=== PATIENT | female | born 1985 | race Caucasian/White ===

== ENCOUNTER 2016-11-09 10:01 | Day surgery (SDC) | payer BC ==
[~2016-11-09 10:01] MED LIST: Lactated Ringers 1,000 ML IV SCH; Lidocaine 1%/Sod Bicarbonate in NS 8.4% 1 ML Syringe PRN; Sodium Chloride 0.9% 10 ML Syringe FLUSH PRN; cefOXitin 2 GM in Premix Bag 1 BAG IV ONE
--- NOTE | 2016-11-09 10:42 | PCM.PREANE ---
Preanesthetic Assessment - Anesthesia/Transfusion/Family Hx Anesthesia History: Prior Anesthesia Without Reaction Type of Anesthesia Reaction: Excessive Nausea/Vomiting Family History of Anesthesia Reaction: No Transfusion History: No Prior Transfusion(s) Intubation History: Unknown - Review of Systems General: No Symptoms Pulmonary: No Symptoms Cardiovascular: No Symptoms Gastrointestinal: No Symptoms (occasionally GERD) Neurological: No Symptoms (history of motion sickness, and vertigo), Headache Other: Reports: Liver Problems (prior history of elevated liver enzymes), Anxiety - Physical Assessment NPO Status Date: 11/08/16 NPO Status Time: 20:30 Pulse: 76 O2 Sat by Pulse Oximetry: 96 Respiratory Rate: 17 Blood Pressure: 119/78 Temperature: 36.9 C Height: 1.55 m Weight: 61.961 kg ASA Class: 2 Mental Status: Alert & Oriented x3 Airway Class: Mallampati = 2 Dentition: Reports: Normal Dentition, Caries Thyro-Mental Finger Breadths: 3 Mouth Opening Finger Breadths: 3 ROM/Head Extension: Full Lungs: Clear to Auscultation, Normal Respiratory Effort Cardiovascular: Regular Rate, Regular Rhythm, No Murmurs - Lab Values: Laboratory Last Values Urine HCG, Qual Negative (NEGATIVE) 11/09/16 10:10 - Allergies Allergies/Adverse Reactions: Allergies Allergy/AdvReac Type Severity Reaction Status Date / Time No Known Allergies Allergy Verified 11/09/16 10:46 - Anesthesia Plan Pre-Op Medication Ordered: None - Acknowledgements Anesthesia Type Planned: MAC Pt an Appropriate Candidate for the Planned Anesthesia: Yes Alternatives and Risks of Anesthesia Discussed w Pt/Guardian: Yes Pt/Guardian Understands and Agrees with Anesthesia Plan: Yes PreAnesthesia Questionnaire Cardiovascular History: Reports: None Respiratory History: Reports: None Gastrointestinal History: Reports: Hemorrhoids, Other (See Below) Other Gastrointestinal History: nausea, vomiting Genitourinary History: Reports: None 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 OB/BYN History: infertility, irregular menses Musculoskeletal History: Reports: None Neurological History: Reports: Migraines Psychiatric History: Reports: Anxiety Endocrine/Metabolic History: Reports: None Hematologic History: Reports: None Immunologic History: Reports: None Oncologic (Cancer) History: Reports: None Dermatologic History: Reports: None - Past Surgical History Head Surgeries/Procedures: Reports: None HEENT Surgical History: Reports: Oral Surgery, Tonsillectomy GI Surgical History: Reports: None Female Surgical History: Reports: None Male Surgical History: Reports: None Endocrine Surgical History: Reports: None Neurological Surgical History: Reports: None Musculoskeletal Surgical History: Reports: None Dermatological Surgical History: Reports: None - History Comment History Comment: vitamins every day - SUBSTANCE USE Smoking Status *Q: Never Smoker Tobacco Use Within Last Twelve Months: No Second Hand Smoke Exposure: No Days Per Week of Alcohol Use: 0 Recreational Drug Use History: No - HOME MEDS Home Medications: Home Meds Vits #93/Iron Fum/FA [ Formula Tablet] 1 tab PO DAILY 11/08/16 [History] - CURRENT (IN HOUSE) MEDS Current Meds: Current Medications Lactated Ringer's (Ringers, Lactated) 1,000 mls @ 125 mls/hr IV ASDIRECTED SHANTEL Stop: 11/09/16 23:00 Last Admin: 11/09/16 10:28 Dose: 125 mls/hr Lidocaine/Sodium Bicarbonate (Buffered Lidocaine 1% In Ns 8.4%) 0.25 ml .XX ONETIME PRN PRN Reason: Prior to IV Start Stop: 11/09/16 18:00 Last Admin: 11/09/16 10:28 Dose: 0.25 ml Sodium Chloride (Saline Flush) 10 ml FLUSH ASDIRECTED PRN PRN Reason: Keep Vein Open Stop: 11/09/16 18:00 Discontinued Medications Bupivacaine HCl/Epinephrine Bitart (Marcaine 0.5%/Epinephrine 1:200,000) Confirm Administered Dose 50 ml .ROUTE .STK-MED ONE Stop: 11/09/16 10:18 Dibucaine (Nupercainal 1% Oint) Confirm Administered Dose 28.35 gm .ROUTE .STK- MED ONE Stop: 11/09/16 10:18 Cefoxitin Sodium 2 gm/ Premix 50 mls @ 100 mls/hr IV ONETIME ONE Stop: 11/09/16 10:00 Last Admin: 11/09/16 10:33 Dose: 100 mls/hr Lidocaine/Epinephrine (Xylocaine 1% With Epinephrine 1:100,000) Confirm Administered Dose 20 ml .ROUTE .STK-MED ONE Stop: 11/09/16 10:18
[2016-11-09] MEDS ORDERED: Scopolamine 1.5 MG Transdermal Patch TRDERM ONE (10:47)
[2016-11-09] MEDS ORDERED: fentaNYL 100 MCG/2 ML SDV ONE (10:54)
[2016-11-09] MEDS ORDERED: Midazolam 1 MG/ML 2 ML SDV ONE (10:54)
[2016-11-09] MEDS ORDERED: Propofol 200 MG/20 ML SDV ONE (10:54)
[2016-11-09] MEDS ORDERED: Lidocaine 1% 4 ML ONE (10:54)
[2016-11-09] MEDS ORDERED: Dexamethasone 4 MG/ML SDV ONE (11:05)
[2016-11-09] MEDS ORDERED: Ondansetron 4 MG/2 ML SDV ONE (11:05)
[2016-11-09] MEDS ORDERED: Lidocaine 1% with EPINEPHrine 1:100,000 20 ML MDV ONE (11:40)
[2016-11-09] MEDS: Lidocaine 1% with EPINEPHrine 1:100,000 20 ML MDV ONE ×2 (11:44→11:49)
[2016-11-09] MEDS: Bupivacaine 0.5%/EPINEPHrine 1:200,000 50 ML MDV ONE ×2 (11:44→11:54)
[2016-11-09] MEDS ORDERED: Metoclopramide 10 MG/2 ML SDV IV PRN (11:50)
[2016-11-09] MEDS ORDERED: fentaNYL 100 MCG/2 ML SDV IVPUSH PRN (11:50)
[2016-11-09] MEDS ORDERED: Ondansetron 4 MG/2 ML SDV IVPUSH PRN (11:50)
--- NOTE | 2016-11-09 12:18 | PCM.OPNOTE ---
- General Post-Op/Procedure Note Date of Surgery/Procedure: 11/09/16 Operative Procedure(s): Diagnostic anoscopy. PPH procedure Findings: Grade 3 prolapsing internal hemorrhoids with 2 anal tags Pre Op Diagnosis: Grade 3 bleeding internal hemorrhoids with 2 anal tags Post-Op Diagnosis: Same Anesthesia Technique: Local, MAC, Moderate Sedation Primary Surgeon: Jay Chavarria Pathology: Rectal strip EBL in mLs: 1 Complications: None Condition: Good Free Text/Narrative:: After adequate IV sedation and analgesia was obtained with monitoring the patient was placed in the prone jackknife position with her buttocks taped. Perianal inspection revealed the hemorrhoids. Anoscopy also confirmed the presence of 3 column internal prolapsed hemorrhoids. A perianal block was performed next. A 2-0 Prolene suture line was placed about 4 cm above the dentate line. The circular stapler was inserted and fired. Once the stapler was removed I inspected the staple line which was hemostatic. Lidocaine ointment and Surgicel were placed in the area.
--- NOTE | 2016-11-09 12:25 | PCM48HPAN ---
Post Anesthesia Note - EVALUATION WITHIN 48HRS OF ANESTHETIC Vital Signs in Normal Range: Yes Patient Participated in Evaluation: Yes Respiratory Function Stable: Yes Airway Patent: Yes Cardiovascular Function Stable: Yes Hydration Status Stable: Yes Pain Control Satisfactory: Yes Nausea and Vomiting Control Satisfactory: Yes Mental Status Recovered: Yes
[2016-11-09 12:28] VITALS: BP 94/63
[2016-11-09] MEDS ORDERED: Acetaminophen/Codeine 300-30 MG Tab PO SCH (12:50)
== END 2016-11-09 13:25 | disposition home or self-care (01) ==
LOC: JD.SDS 10:01
PROVIDERS: ATTEND Surgery
DX: K62.89 Other specified diseases of anus and rectum (principal); K64.8 Other hemorrhoids
CPT/HCPCS: 46947; 81025; A9270; J0694; J1100; J2250; J2405; J3010; J7120; 00902; J2704

== ENCOUNTER 2018-06-21 05:25 | Inpatient (IN) | payer BC ==
[~2018-06-21 05:25] MED LIST changes: -Lidocaine 1%/Sod Bicarbonate in NS 8.4% 1 ML Syringe PRN; +Nalbuphine 20 MG/ML 1 ML Syringe IVPUSH PRN; +Oxytocin/Lactated Ringers 10 UNIT/1,000 ML BAG IV SCH; -cefOXitin 2 GM in Premix Bag 1 BAG IV ONE
[2018-06-21] MEDS ORDERED: Scopolamine 1.5 MG Transdermal Patch TOP SCH (06:00)
[2018-06-21] MEDS ORDERED: Metoclopramide 10 MG/2 ML SDV IVPUSH ONE (06:30)
[2018-06-21] MEDS ORDERED: Citric Acid/Sodium Citrate Solution 30 ML Cup PO ONE (06:30)
[2018-06-21] MEDS ORDERED: ceFAZolin 2 GM in Premix Bag 1 BAG IV ONE (07:00)
--- NOTE | 2018-06-21 07:03 | PCM.OPNOTE ---
- General Post-Op/Procedure Note Date of Surgery/Procedure: 06/21/18 Operative Procedure(s): Repeat low transverse Findings: Minimal amount of scar tissue between the rectus and fascia. Minimal scar tissue between the bladder and PRASHANT. Baby boy in a vertex presentation, floating /extended head. Weight of 8 lbs 7 oz. APGARS of 2 & 8. Normal appearance of the uterus, ovaries, and fallopian tubes. Pre Op Diagnosis: 39 weeks gestation. History of Post-Op Diagnosis: Same Anesthesia Technique: Spinal Primary Surgeon: Janet Sidhu Secondary Surgeon: April Mayen Anesthesia Provider: Dora Vizcaino Reason Pattern Checker Was Necessary: Speed/safety of procedure. BMI of patient. Pathology: Cord blood collected. Cord gas collected. Placenta discarded Fluid Replacement, Intraop: 2,000 Output, Urine Amount: 100 EBL in mLs: 600 Complications: None Condition: Good Free Text/Narrative:: The risks, benefits, indications, potential complications, and alternatives were explained to the patient and informed consent obtained. After induction of anesthesia, the patient was placed in a supine position and then draped and prepped in the usual sterile manner. A Pfannenstiel incision was made and carried down through the subcutaneous tissue to the fascia. Fascial incision was made and extended transversely. The fascia was from the underlying rectus tissue superiorly and inferiorly. The peritoneum was identified and entered. Peritoneal incision was extended longitudinally. The utero-vesical peritoneal reflection was incised transversely and the bladder flap was bluntly freed from the lower uterine segment. A low transverse uterine incision was made sharply with a scalpel and extended bluntly in a cephalocaudad direction. An attempt was made to bring the head down further in the pelvis by applying fundal pressure. head attempted to be lifted through hysterotomy, but unsuccessful. Vacuum extraction attempted to be placed, but suction not able to be maintained and quickly released after 2 applications. Hand again placed into the hysterotomy in an attempt to guide fetus up/through incision, but due to floating station and extended head with spine up this was challenging. Eventually with motion baby did start to turn. At this point decision made to grasp a foot and deliver it through hysterotomy. Additional foot also grasped and brought through the hysterotomy. Remainder of baby then delivered with standard breech maneuvers rather rapidly. After the umbilical cord was clamped and cut a section was obtained for cord gasses. Cord blood was obtained for evaluation. The placenta was removed intact and appeared normal. The uterus was exteriorized and cleared of clots. The uterine outline, tubes and ovaries appeared normal. The uterine incision was closed with running locked sutures of 0 Vicryl. Hemostasis was obtained with a second imbricating layer of 0 vicryl. The uterus was then placed back into the abdomen. The infracolic gutters were cleared of blood clots. The fascia was then reapproximated with running sutures of 0 Vicryl. The sucutaneous tissue was irrigated with sterile warm normal saline, hemostasis obtained with cautery. This layer was closed with a running 0 vicryl. The skin was reapproximated with running Subcuticular 4-0 monocryl sutures. Instrument, sponge, and needle counts were correct prior the abdominal closure and at the conclusion of the case.
[2018-06-21] MEDS ORDERED: Oxytocin 10 Units/1 ML SDV ONE (07:07)
[2018-06-21] MEDS ORDERED: Ondansetron 4 MG/2 ML SDV ONE (07:07)
[2018-06-21] MEDS ORDERED: ceFAZolin 1 GM Vial ONE ×2 (07:07)
[2018-06-21] MEDS ORDERED: Ketorolac 30 MG/ML SDV ONE (07:09)
[2018-06-21] MEDS ORDERED: Morphine PF 10 MG/10 ML SDV ONE (07:11)
--- NOTE | 2018-06-21 07:33 | PCM.PREANE ---
Preanesthetic Assessment - Anesthesia/Transfusion/Family Hx Anesthesia History: Prior Anesthesia Reaction Type of Anesthesia Reaction: Other (see below) (NOEMI) Family History of Anesthesia Reaction: No Transfusion History: No Prior Transfusion(s) Intubation History: Unknown - Review of Systems General: No Symptoms Pulmonary: No Symptoms Cardiovascular: No Symptoms Gastrointestinal: No Symptoms Neurological: No Symptoms Other: Reports: None - Physical Assessment NPO Status Date: 06/20/18 NPO Status Time: 22:35 Pulse: 87 O2 Sat by Pulse Oximetry: 98 Respiratory Rate: 16 Blood Pressure: 125/61 Vital Signs: Last Vital Signs Temp 36.8 C 06/21/18 05:35 Pulse 87 06/21/18 05:35 Resp 16 06/21/18 05:35 BP 125/61 06/21/18 05:35 Pulse Ox 98 06/21/18 05:35 Height: 1.52 m Weight: 81.193 kg ASA Class: 2 Mental Status: Alert & Oriented x3 Airway Class: Mallampati = 2 Dentition: Reports: Normal Dentition Thyro-Mental Finger Breadths: 3 Mouth Opening Finger Breadths: 3 ROM/Head Extension: Full Lungs: Clear to Auscultation, Normal Respiratory Effort Cardiovascular: Regular Rate, Regular Rhythm - Lab Values: Laboratory Last Values WBC 9.03 K/mm3 (3.98-10.04) 06/21/18 05:40 RBC 4.67 M/mm3 (3.98-5.22) 06/21/18 05:40 Hgb 14.1 gm/L (11.2-15.7) 06/21/18 05:40 Hct 40.2 % (34.1-44.9) 06/21/18 05:40 MCV 86.1 fl (79.4-94.8) 06/21/18 05:40 MCH 30.2 pg (25.6-32.2) 06/21/18 05:40 MCHC 35.1 g/dl (32.2-35.5) 06/21/18 05:40 RDW Std Deviation 42.7 fL (36.4-46.3) 06/21/18 05:40 Plt Count 234 K/mm3 (182-369) 06/21/18 05:40 MPV 10.7 fl (9.4-12.3) 06/21/18 05:40 Neut % (Auto) 72.4 % (34.0-71.1) H 06/21/18 05:40 Lymph % (Auto) 17.7 % (19.3-51.7) L 06/21/18 05:40 Whitley % (Auto) 8.3 % (4.7-12.5) 06/21/18 05:40 Eos % (Auto) 0.4 (0.7-5.8) L 06/21/18 05:40 Baso % (Auto) 0.1 % (0.1-1.2) 06/21/18 05:40 Neut # (Auto) 6.53 K/mm3 (1.56-6.13) H 06/21/18 05:40 Lymph # (Auto) 1.60 K/mm3 (1.18-3.74) 06/21/18 05:40 Whitley # (Auto) 0.75 K/mm3 (0.24-0.36) H 06/21/18 05:40 Eos # (Auto) 0.04 K/mm3 (0.04-0.36) 06/21/18 05:40 Baso # (Auto) 0.01 K/mm3 (0.01-0.08) 06/21/18 05:40 - Allergies Allergies/Adverse Reactions: Allergies Allergy/AdvReac Type Severity Reaction Status Date / Time No Known Allergies Allergy Verified 11/09/16 10:46 - Acknowledgements Anesthesia Type Planned: Spinal Pt an Appropriate Candidate for the Planned Anesthesia: Yes Alternatives and Risks of Anesthesia Discussed w Pt/Guardian: Yes Pt/Guardian Understands and Agrees with Anesthesia Plan: Yes PreAnesthesia Questionnaire HEENT History: Reports: None Cardiovascular History: Reports: None Respiratory History: Reports: None Gastrointestinal History: Reports: Hemorrhoids, Other (See Below) Other Gastrointestinal History: nausea, vomiting. 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 Endocrine/Metabolic History: Reports: None Hematologic History: Reports: None Immunologic History: Reports: None Oncologic (Cancer) History: Reports: None Dermatologic History: Reports: None - Past Surgical History Head Surgeries/Procedures: Reports: None HEENT Surgical History: Reports: Oral Surgery, Tonsillectomy Cardiovascular Surgical History: Reports: None GI Surgical History: Reports: None Female Surgical History: Reports: None Endocrine Surgical History: Reports: None Neurological Surgical History: Reports: None Musculoskeletal Surgical History: Reports: None Dermatological Surgical History: Reports: None - History Comment History Comment: vitamins every day - SUBSTANCE USE Smoking Status *Q: Never Smoker Second Hand Smoke Exposure: No Recreational Drug Use History: No - HOME MEDS Home Medications: Home Meds Vits #93/Iron Fum/FA [ Formula Tablet] 1 tab PO DAILY 11/08/16 [History] - CURRENT (IN HOUSE) MEDS Current Meds: Current Medications Lactated Ringer's (Ringers, Lactated) 1,000 mls @ 125 mls/hr IV ASDIRECTED [facility] Last Admin: 06/21/18 06:28 Dose: 125 mls/hr Oxytocin/Lactated Ringer's (Pitocin In Lr 10 Units/1,000 Ml) 10 unit in 1,000 mls @ 100 mls/hr IV ASDIRECTED [facility]; Protocol Miscellaneous Information (Remove Patch) 1 ea TRDERM Q24H SHANTEL Nalbuphine HCl (Nubain) 10 mg IVPUSH Q2H PRN PRN Reason: pain Scopolamine (Transderm-Scop) 1.5 mg TOP ASDIRECTED [facility] Last Admin: 06/21/18 06:00 Dose: 1.5 mg Sodium Chloride (Saline Flush) 10 ml FLUSH ASDIRECTED PRN PRN Reason: Keep Vein Open Discontinued Medications Cefazolin Sodium (Ancef) Confirm Administered Dose 1 gm .ROUTE .STK-MED ONE Stop: 06/21/18 07:08 Cefazolin Sodium (Ancef) Confirm Administered Dose 1 gm .ROUTE .STK-MED ONE Stop: 06/21/18 07:08 Citric Acid/Sodium Citrate (Bicitra Solution) 30 ml PO ONETIME ONE Stop: 06/21/18 06:31 Last Admin: 06/21/18 06:41 Dose: 30 ml Cefazolin Sodium/Dextrose 2 gm (/ Premix) 50 mls @ 100 mls/hr IV ONETIME ONE Stop: 06/21/18 07:29 Ketorolac Tromethamine (Toradol) Confirm Administered Dose 30 mg .ROUTE .STK- MED ONE Stop: 06/21/18 07:10 Metoclopramide HCl (Reglan) 10 mg IVPUSH ONETIME ONE Stop: 06/21/18 06:31 Last Admin: 06/21/18 06:43 Dose: 10 mg Morphine Sulfate (Duramorph Pf) Confirm Administered Dose 10 mg .ROUTE .STK-MED ONE Stop: 06/21/18 07:12 Ondansetron HCl (Zofran) Confirm Administered Dose 4 mg .ROUTE .STK-MED ONE Stop: 06/21/18 07:08 Oxytocin (Pitocin) Confirm Administered Dose 10 unit .ROUTE .STK-MED ONE Stop: 06/21/18 07:08
[2018-06-21] MEDS ORDERED: ePHEDrine 50 MG/ML SDV ONE (07:56)
[2018-06-21] MEDS ORDERED: Lactated Ringers 1,000 ML ONE ×2 (08:01→08:38)
[2018-06-21] MEDS ORDERED: ePHEDrine 50 MG/ML SDV IVPUSH PRN ×2 (08:43→10:25)
[2018-06-21] MEDS ORDERED: diphenhydrAMINE 50 MG/ML SDV IVPUSH PRN ×2 (08:43→10:25)
[2018-06-21] MEDS ORDERED: Ondansetron 4 MG/2 ML SDV IVPUSH PRN (08:43)
--- NOTE | 2018-06-21 09:00 | PCM.POSTAN ---
POST ANESTHESIA ASSESSMENT - MENTAL STATUS Mental Status: Alert, Oriented - VITAL SIGNS Pulse Rate: 85 SaO2: 98 Resp Rate: 14 Blood Pressure: 111/55 Temperature: 98 C - RESPIRATORY Respiratory Status: Respiratory Rate WNL, Airway Patent, O2 Saturation Stable - CARDIOVASCULAR CV Status: Pulse Rate WNL, Blood Pressure Stable - GASTROINTESTINAL GI Status: No Symptoms - PAIN Pain Score: 0 - POST OP HYDRATION Hydration Status: Adequate & Stable
[2018-06-21] MEDS ORDERED: Dextrose 5%-Lactated Ringers 1,000 ML IV SCH (10:25)
[2018-06-21] MEDS ORDERED: Ondansetron 4 MG/2 ML SDV IV PRN (10:25)
[2018-06-21] MEDS ORDERED: Docusate Sodium 100 MG Cap PO PRN (10:25)
[2018-06-21] MEDS ORDERED: Lanolin 100% Cream 7 GM Tube TOP PRN (10:25)
[2018-06-21] MEDS ORDERED: Promethazine 25 MG/ML SDV IM ONE (12:34)
[2018-06-21] MEDS ORDERED: Sodium Chloride 0.9% 500 ML IV ONE (12:36)
[2018-06-21] MEDS: Ketorolac 30 MG/ML SDV IVPUSH SCH ×2 (13:25→20:18)
[2018-06-22] MEDS: Ketorolac 30 MG/ML SDV IVPUSH SCH (02:11)
[2018-06-22] MEDS ORDERED: Acetaminophen 325 MG Tab PO PRN (07:35)
[2018-06-22] MEDS ORDERED: Promethazine 25 MG/ML SDV IM PRN (07:35)
--- NOTE | 2018-06-22 07:36 | PCM.PNPP ---
- General Info Date of Service: 06/22/18 Functional Status: Reports: Pain Controlled, Tolerating Diet, Ambulating - Review of Systems General: Reports: No Symptoms Pulmonary: Reports: No Symptoms Cardiovascular: Reports: No Symptoms Gastrointestinal: Reports: Abdominal Pain (managed wiht medications ) Genitourinary: Reports: No Symptoms Musculoskeletal: Reports: No Symptoms Neurological: Reports: No Symptoms - Patient Data Vital Signs - Most Recent: Last Vital Signs Temp 37.0 C 06/21/18 23:27 Pulse 79 06/21/18 23:28 Resp 16 06/22/18 07:00 BP 107/41 L 06/21/18 23:27 Pulse Ox 97 06/22/18 07:00 Weight - Most Recent: 81.193 kg I&O - Last 24 Hours: Intake & Output 06/21/18 06/22/18 06/22/18 22:59 06:59 14:59 Intake Total 3000 Output Total 1000 1900 Balance 2000 -1900 Lab Results - Last 24 Hours: Laboratory Results - last 24 hr 06/21/18 06/21/18 06/22/18 Range/Units 05:40 05:40 05:54 WBC 10.16 H (3.98-10.04) K/mm3 RBC 3.77 L (3.98-5.22) M/mm3 Hgb 11.3 (11.2-15.7) gm/L Hct 33.3 L (34.1-44.9) % MCV 88.3 (79.4-94.8) fl MCH 30.0 (25.6-32.2) pg MCHC 33.9 (32.2-35.5) g/dl RDW Std Deviation 43.5 (36.4-46.3) fL Plt Count 198 (182-369) K/mm3 MPV 11.1 (9.4-12.3) fl RPR Non-reactive (NONREACTIVE) Blood Type O POSITIVE Gel Antibody Screen Negative Med Orders - Current: Current Medications Diphenhydramine HCl (Benadryl) 25 mg IVPUSH Q6H PRN PRN Reason: Itching or Nausea Docusate Sodium (Colace) 100 mg PO Q12H PRN PRN Reason: Constipation Emollient Ointment (Lansinoh Hpa) 0 gm TOP ASDIRECTED PRN PRN Reason: Sore Nipples Ephedrine Sulfate (Ephedrine Sulfate) 5 mg IVPUSH SEECOMMENT PRN PRN Reason: Other Ondansetron HCl (Zofran) 4 mg IV Q8H PRN PRN Reason: Nausea/Vomiting Last Admin: 06/21/18 11:03 Dose: 4 mg Oxycodone/Acetaminophen (Percocet 325-5 Mg) 2 tab PO Q4H PRN PRN Reason: Pain (moderate 4-6) Discontinued Medications Cefazolin Sodium (Ancef) Confirm Administered Dose 1 gm .ROUTE .STK-MED ONE Stop: 06/21/18 07:08 Cefazolin Sodium (Ancef) Confirm Administered Dose 1 gm .ROUTE .STK-MED ONE Stop: 06/21/18 07:08 Citric Acid/Sodium Citrate (Bicitra Solution) 30 ml PO ONETIME ONE Stop: 06/21/18 06:31 Last Admin: 06/21/18 06:41 Dose: 30 ml Diphenhydramine HCl (Benadryl) 25 mg IVPUSH Q6H PRN PRN Reason: pruritis Ephedrine Sulfate (Ephedrine Sulfate) Confirm Administered Dose 50 mg .ROUTE .STK-MED ONE Stop: 06/21/18 07:57 Ephedrine Sulfate (Ephedrine Sulfate) 5 mg IVPUSH ASDIRECTED PRN PRN Reason: Hypotension Cefazolin Sodium/Dextrose 2 gm (/ Premix) 50 mls @ 100 mls/hr IV ONETIME ONE Stop: 06/21/18 07:29 Last Admin: 06/21/18 14:12 Dose: Not Given Lactated Ringer's (Ringers, Lactated) 1,000 mls @ 125 mls/hr IV ASDIRECTED [facility] Last Admin: 06/21/18 06:28 Dose: 125 mls/hr Oxytocin/Lactated Ringer's (Pitocin In Lr 10 Units/1,000 Ml) 10 unit in 1,000 mls @ 100 mls/hr IV ASDIRECTED [facility], [facility]; Protocol Lactated Ringer's (Ringers, Lactated) Confirm Administered Dose 1,000 mls @ as directed .ROUTE .STK-MED ONE Stop: 06/21/18 08:02 Lactated Ringer's (Ringers, Lactated) Confirm Administered Dose 1,000 mls @ as directed .ROUTE .STK-MED ONE Stop: 06/21/18 08:39 Dextrose/Lactated Ringer's (Dextrose 5%-Lactated Ringers) 1,000 mls @ 125 mls/ hr IV ASDIRECTED [facility]1983 Stop: 06/21/18 18:24 Last Admin: 06/21/18 12:19 Dose: 125 mls/hr Sodium Chloride (Normal Saline) 500 mls @ 999 mls/hr IV .BOLUS ONE Stop: 06/21/18 13:06 Last Admin: 06/21/18 13:36 Dose: 999 mls/hr Ketorolac Tromethamine (Toradol) Confirm Administered Dose 30 mg .ROUTE .STK- MED ONE Stop: 06/21/18 07:10 Ketorolac Tromethamine (Toradol) 30 mg IVPUSH Q6H [facility] Stop: 06/22/18 01:31 Last Admin: 06/22/18 02:11 Dose: 30 mg Metoclopramide HCl (Reglan) 10 mg IVPUSH ONETIME ONE Stop: 06/21/18 06:31 Last Admin: 06/21/18 06:43 Dose: 10 mg Miscellaneous Information (Remove Patch) 1 ea TRDERM Q72H [facility] Morphine Sulfate (Duramorph Pf) Confirm Administered Dose 10 mg .ROUTE .STK-MED ONE Stop: 06/21/18 07:12 Nalbuphine HCl (Nubain) 10 mg IVPUSH Q2H PRN PRN Reason: pain Ondansetron HCl (Zofran) Confirm Administered Dose 4 mg .ROUTE .STK-MED ONE Stop: 06/21/18 07:08 Ondansetron HCl (Zofran) 4 mg IVPUSH ONETIME PRN PRN Reason: Nausea/Vomiting Oxytocin (Pitocin) Confirm Administered Dose 10 unit .ROUTE .STK-MED ONE Stop: 06/21/18 07:08 Promethazine HCl (Phenergan) 25 mg IM ONETIME ONE Stop: 06/21/18 12:35 Last Admin: 06/21/18 13:28 Dose: 25 mg Scopolamine (Transderm-Scop) 1.5 mg TOP ASDIRECTED [facility] Last Admin: 06/21/18 06:00 Dose: 1.5 mg Sodium Chloride (Saline Flush) 10 ml FLUSH ASDIRECTED PRN PRN Reason: Keep Vein Open - Infant Interaction Infant Disposition, : [place] in Room with Family Interaction: Holding Infant Infant Feeding: Breastfed Infant; Nursed Well Support Person: - Recovery Exam Fundal Tone: Firm Fundal Level: 1 Fingerbreadths Below Umbilicus Fundal Placement: Midline Lochia Amount: Scant, Small Lochia Color: Rubra/Red Perineum Description: Intact, Minimal Bruising/Swelling - Exam General: Alert, Oriented, Cooperative Lungs: Clear to Auscultation, Normal Respiratory Effort Cardiovascular: Regular Rate, Regular Rhythm GI/Abdominal Exam: Soft, Tender (appropriate post op ) Extremities: Normal Inspection Skin: Warm, Dry, Intact Wound/Incisions: Dressing Dry and Intact - Problem List & Annotations (1) S/P repeat low transverse SNOMED Code(s): 530844143, 58981529, 529284592, 600724390, 764240896 Code(s): Z98.891 - HISTORY OF UTERINE SCAR FROM PREVIOUS SURGERY Status: Acute Current Visit: Yes (2) 39 weeks gestation of SNOMED Code(s): 62176000 Code(s): Z3A.39 - 39 WEEKS GESTATION OF Status: Acute Current Visit: No - Problem List Review Problem List Initiated/Reviewed/Updated: Yes - My Orders Last 24 Hours: My Active Orders 06/21/18 10:25 Activity as Tolerated [RC] .Routine Antiembolic Devices [RC] PER UNIT ROUTINE Communication Order [RC] PER UNIT ROUTINE Intake and Output [RC] ASDIRECTED Notify Provider Intake and Out [RC] ASDIRECTED RT Incentive Spirometry [RC] Q2HWA Vital Signs [RC] Q1HR Acetaminophen/oxyCODONE [Percocet 325-5 MG] 2 tab PO Q4H PRN Docusate Sodium [Colace] 100 mg PO Q12H PRN Lanolin [Lansinoh HPA] See Dose Instructions TOP ASDIRECTED PRN Ondansetron [Zofran] 4 mg IV Q8H PRN diphenhydrAMINE [Benadryl] 25 mg IVPUSH Q6H PRN ePHEDrine [ePHEDrine sulfate] 5 mg IVPUSH SEECOMMENT PRN Assess Lochia [WOMSER] Per Unit Routine Assess Uterine Involution [WOMSER] Per Unit Routine Breast Pump [WOMSER] Per Unit Routine Peripheral IV Discontinue [OM.PC] Routine Sequential Compression Device [OM.PC] Per Unit Routine 06/21/18 Breakfast Regular Diet [DIET] 06/22/18 07:35 Acetaminophen [Tylenol] 650 mg PO Q4H PRN Promethazine [Phenergan] 25 mg IM Q6H PRN - Assessment Assessment:: 33 y/o G2 now P2002 POD#1 from [facility] at 39 4/7 wks - Plan Plan:: * Routine cares. Patient very nauseated with narcotics and so at this time prefers to manage pain with tylenol and ibuprofen alone. * Breast feeding * Discharge home in 1-2 days
[2018-06-22] MEDS: Ibuprofen 600 MG Tab PO PRN ×2 (10:39→15:57)
[2018-06-22] MEDS: Acetaminophen/oxyCODONE 325-5 MG Tab PO PRN ×2 (18:44→20:52)
[2018-06-23] MEDS: Acetaminophen/oxyCODONE 325-5 MG Tab PO PRN ×2 (03:47→08:54)
--- NOTE | 2018-06-23 07:49 | PCM.DCSUM1 ---
Discharge Summary - Hospital Course HPI Initial Comments: s/p RCS. Doing well and uncomplicated postop course Diagnosis: Stroke: No - Discharge Data Discharge Date: 06/23/18 Discharge Disposition: Home, Self-Care 01 Condition: Good - Patient Summary/Data Operative Procedure(s) Performed: Repeat low transverse - Patient Instructions Diet: Usual Diet as Tolerated Activity: No Strenuous Activities Activity, Other: pelvic rest Driving: Do Not Drive Showering/Bathing: May Shower Wound/Incision Care: Keep Operative Site/Wound Site Clean and Dry Notify Provider of: Fever - Discharge Plan *PRESCRIPTION DRUG MONITORING PROGRAM REVIEWED*: No *COPY OF PRESCRIPTION DRUG MONITORING REPORT IN PATIENT JOSE A: No Home Medications: Home Meds Vits #93/Iron Fum/FA [ Formula Tablet] 1 tab PO DAILY 11/08/16 [History] Referrals: Janet Sidhu MD [Primary Care Provider] - - Discharge Summary/Plan Comment DC Time >30 min.: No - General Info Date of Service: 06/23/18 Functional Status: Reports: Pain Controlled - Review of Systems General: Reports: No Symptoms HEENT: Reports: No Symptoms Pulmonary: Reports: No Symptoms Cardiovascular: Reports: No Symptoms Gastrointestinal: Reports: No Symptoms Genitourinary: Reports: No Symptoms Musculoskeletal: Reports: No Symptoms Skin: Reports: No Symptoms Neurological: Reports: No Symptoms Psychiatric: Reports: No Symptoms - Patient Data Vitals - Most Recent: Last Vital Signs Temp 36.7 C 06/23/18 03:04 Pulse 78 06/23/18 03:04 Resp 14 06/23/18 03:04 BP 126/84 06/23/18 03:04 Pulse Ox 97 06/23/18 03:04 Weight - Most Recent: 81.193 kg Med Orders - Current: Current Medications Acetaminophen (Tylenol) 650 mg PO Q4H PRN PRN Reason: Pain Last Admin: 06/22/18 17:43 Dose: 650 mg Diphenhydramine HCl (Benadryl) 25 mg IVPUSH Q6H PRN PRN Reason: Itching or Nausea Docusate Sodium (Colace) 100 mg PO Q12H PRN PRN Reason: Constipation Emollient Ointment (Lansinoh Hpa) 0 gm TOP ASDIRECTED PRN PRN Reason: Sore Nipples Ephedrine Sulfate (Ephedrine Sulfate) 5 mg IVPUSH SEECOMMENT PRN PRN Reason: Other Ibuprofen (Motrin) 600 mg PO Q6H PRN PRN Reason: Pain Last Admin: 06/22/18 15:57 Dose: 600 mg Ondansetron HCl (Zofran) 4 mg IV Q8H PRN PRN Reason: Nausea/Vomiting Last Admin: 06/21/18 11:03 Dose: 4 mg Oxycodone/Acetaminophen (Percocet 325-5 Mg) 2 tab PO Q4H PRN PRN Reason: Pain (moderate 4-6) Last Admin: 06/23/18 03:47 Dose: 1 tab Promethazine HCl (Phenergan) 25 mg IM Q6H PRN PRN Reason: Nausea Discontinued Medications Cefazolin Sodium (Ancef) Confirm Administered Dose 1 gm .ROUTE .STK-MED ONE Stop: 06/21/18 07:08 Cefazolin Sodium (Ancef) Confirm Administered Dose 1 gm .ROUTE .STK-MED ONE Stop: 06/21/18 07:08 Citric Acid/Sodium Citrate (Bicitra Solution) 30 ml PO ONETIME ONE Stop: 06/21/18 06:31 Last Admin: 06/21/18 06:41 Dose: 30 ml Diphenhydramine HCl (Benadryl) 25 mg IVPUSH Q6H PRN PRN Reason: pruritis Ephedrine Sulfate (Ephedrine Sulfate) Confirm Administered Dose 50 mg .ROUTE .STK-MED ONE Stop: 06/21/18 07:57 Ephedrine Sulfate (Ephedrine Sulfate) 5 mg IVPUSH ASDIRECTED PRN PRN Reason: Hypotension Cefazolin Sodium/Dextrose 2 gm (/ Premix) 50 mls @ 100 mls/hr IV ONETIME ONE Stop: 06/21/18 07:29 Last Admin: 06/21/18 14:12 Dose: Not Given Lactated Ringer's (Ringers, Lactated) 1,000 mls @ 125 mls/hr IV ASDIRECTED SHANTEL Last Admin: 06/21/18 06:28 Dose: 125 mls/hr Oxytocin/Lactated Ringer's (Pitocin In Lr 10 Units/1,000 Ml) 10 unit in 1,000 mls @ 100 mls/hr IV ASDIRECTED SHANTEL; Protocol Lactated Ringer's (Ringers, Lactated) Confirm Administered Dose 1,000 mls @ as directed .ROUTE .STK-MED ONE Stop: 06/21/18 08:02 Lactated Ringer's (Ringers, Lactated) Confirm Administered Dose 1,000 mls @ as directed .ROUTE .STK-MED ONE Stop: 06/21/18 08:39 Dextrose/Lactated Ringer's (Dextrose 5%-Lactated Ringers) 1,000 mls @ 125 mls/ hr IV ASDIRECTED [facility] Stop: 06/21/18 18:24 Last Admin: 06/21/18 12:19 Dose: 125 mls/hr Sodium Chloride (Normal Saline) 500 mls @ 999 mls/hr IV .BOLUS ONE Stop: 06/21/18 13:06 Last Admin: 06/21/18 13:36 Dose: 999 mls/hr Ketorolac Tromethamine (Toradol) Confirm Administered Dose 30 mg .ROUTE .STK- MED ONE Stop: 06/21/18 07:10 Ketorolac Tromethamine (Toradol) 30 mg IVPUSH Q6H [facility] Stop: 06/22/18 01:31 Last Admin: 06/22/18 02:11 Dose: 30 mg Metoclopramide HCl (Reglan) 10 mg IVPUSH ONETIME ONE Stop: 06/21/18 06:31 Last Admin: 06/21/18 06:43 Dose: 10 mg Miscellaneous Information (Remove Patch) 1 ea TRDERM Q72H [facility] Morphine Sulfate (Duramorph Pf) Confirm Administered Dose 10 mg .ROUTE .STK-MED ONE Stop: 06/21/18 07:12 Nalbuphine HCl (Nubain) 10 mg IVPUSH Q2H PRN PRN Reason: pain Ondansetron HCl (Zofran) Confirm Administered Dose 4 mg .ROUTE .STK-MED ONE Stop: 06/21/18 07:08 Ondansetron HCl (Zofran) 4 mg IVPUSH ONETIME PRN PRN Reason: Nausea/Vomiting Oxytocin (Pitocin) Confirm Administered Dose 10 unit .ROUTE .STK-MED ONE Stop: 06/21/18 07:08 Promethazine HCl (Phenergan) 25 mg IM ONETIME ONE Stop: 06/21/18 12:35 Last Admin: 06/21/18 13:28 Dose: 25 mg Scopolamine (Transderm-Scop) 1.5 mg TOP ASDIRECTED SHANTEL Last Admin: 06/21/18 06:00 Dose: 1.5 mg Sodium Chloride (Saline Flush) 10 ml FLUSH ASDIRECTED PRN PRN Reason: Keep Vein Open - Exam General: Reports: Alert, Oriented HEENT: Reports: Pupils Equal, Pupils Reactive, EOMI, Mucous Membr. Moist/[place]: Reports: Supple Lungs: Reports: Clear to Auscultation, Normal Respiratory Effort Cardiovascular: Reports: Regular Rate, Regular Rhythm GI/Abdominal Exam: Normal Bowel Sounds, Soft, Non-Tender, No Organomegaly, No Distention, No Abnormal Bruit, No Mass, Pelvis Stable Back Exam: Reports: Normal Inspection, Full Range of Motion Extremities: Normal Inspection, Normal Range of Motion, Non-Tender, No Pedal Edema, Normal Capillary Refill Skin: Reports: Warm, Dry, Intact Wound/Incisions: Reports: Healing Well Neurological: Reports: No New Focal Deficit Psy/Mental Status: Reports: Alert, Normal Affect, Normal Mood
[2018-06-23 10:53] VITALS: BP 122/87
== END 2018-06-23 10:15 | disposition home or self-care (01) | DRG 540 ==
LOC: JD.OB 05:25
PROVIDERS: ADMIT Obstetrics & Gynecology; ATTEND Obstetrics & Gynecology
PROC: 10D00Z1 Extraction of Products of Conception, Low, Open Approach (ICD-10-PCS; principal; 2018-06-21)
PROC: 6A550ZT Pheresis of Cord Blood Stem Cells, Single (ICD-10-PCS; principal; 2018-06-21)
DX: O34.211 Maternal care for low transverse scar from previous cesarean delivery (principal); N85.8 Other specified noninflammatory disorders of uterus; O32.3XX0 Maternal care for face, brow and chin presentation, not applicable or unspecified; Z37.0 Single live birth; Z3A.39 39 weeks gestation of pregnancy; O90.89 Other complications of the puerperium, not elsewhere classified; R11.0 Nausea; T40.605A Adverse effect of unspecified narcotics, initial encounter
CPT/HCPCS: 01961; 36415; 36600; 59025; 85025; 85027; 86592; 86850; 86900; 86901; A9270-GY; J0690; J1885; J2270; J2405; J2550; J2590; J2765; J7040; J7042; J7120